=== PATIENT | female | born 1975 | race Caucasian/White ===

== ENCOUNTER 2025-02-03 20:46 | Emergency (ER) | payer SELFPAY ==
[~2025-02-03] VITALS: Ht 170.2 cm; Wt 52.0 kg
[2025-02-03 20:50] VITALS: O2SAT 100
[2025-02-03] MEDS: LORAZEPAM 2MG/ML UD SYRINGE IM NR (21:17)
[2025-02-03] MEDS: DIPHENHYDRAMINE 50MG/ML VIAL IM ONE (21:17)
[2025-02-03] MEDS: HALOPERIDOL LACTATE 5MG/ML VIAL IM ONE (21:17)
[2025-02-03] MEDS: SODIUM CHLORIDE 0.9% 1,000 ML IV ONE ×2 (22:39)
[2025-02-03 22:56] LABS: BASOPHILS % 0.5 % (0.0-2.0); EOSINOPHILS % 0.2 % (0.0-5.0); HEMATOCRIT. 36.0 % (36.0-48.0); HEMOGLOBIN. 11.5 g/dL (12.0-16.0); LYMPHOCYTES % 9.6 % (20.0-50.0); MEAN PLATELET VOLUME 8.0 fl (7.4-10.4); MONOCYTES % 6.9 % (2.0-8.0); NEUTROPHILS % 82.8 % (40.0-76.0); PLATELET 298 x1000/uL (130-400); RED BLOOD CELL COUNT 4.50 mill/uL (4.2-5.4); RED CELL DISTRIBUTION WIDTH 15.3 % (11.6-14.6)
[2025-02-03 23:05] LABS: HCG SCREEN NEGATIVE
[2025-02-03 23:09] LABS: CREATININE 0.7 mg/dL (0.6-1.0); ETHANOL BLOOD < 10 mg/dL (<10); UREA NITROGEN BLOOD 18 mg/dL (9-23)
[2025-02-03 23:10] LABS: PROTEIN TOTAL 6.9 g/dL (6.0-8.3)
[2025-02-03 23:11] LABS: ASPARTATE AMINOTRANSFERASE 55 IU/L (<34); BILIRUBIN DIRECT 0.2 mg/dL (<=3.0); BILIRUBIN TOTAL 0.6 mg/dL (0.1-1.0)
[2025-02-04] MEDS: POTASSIUM CHLORIDE 20MEQ TABLET SR PO ONE (00:29)
[2025-02-04] MEDS: OLANZAPINE 10 MG/VIAL IM NR (03:10)
[2025-02-04 04:42] LABS: *AMPHETAMINES SCREEN URINE NEGATIVE (NEGATIVE)
[2025-02-04 04:43] LABS: *BARBITURATES SCREEN URINE NEGATIVE (NEGATIVE); *BENZODIAZEPINES SCREEN URINE NEGATIVE (NEGATIVE); *COCAINE SCREEN URINE NEGATIVE (NEGATIVE); CANNABINOID URINE SCREEN NEGATIVE (NEGATIVE); ECSTASY MDMA SCREEN URINE NEGATIVE (NEGATIVE); METHADONE URINE SCREEN NEGATIVE (NEGATIVE); OPIATES URINE SCREEN NEGATIVE (NEGATIVE); PHENCYCLIDINE URINE SCREEN NEGATIVE (NEGATIVE)
[2025-02-04] MEDS: HALOPERIDOL LACTATE 5MG/ML VIAL IM ONE (04:44)
[2025-02-04] MEDS: DIPHENHYDRAMINE 50MG/ML VIAL IM ONE (04:44)
[2025-02-04] MEDS: LORAZEPAM 2MG/ML UD SYRINGE IM NR (04:44)
[2025-02-04 20:33] VITALS: BP 99/60; PULSE 75; RESP 20; TEMP 36.9; O2SAT 99
== END 2025-02-04 20:39 ==
LOC: ER 20:46
DX: F29 Unspecified psychosis not due to a substance or known physiological condition (principal); E87.6 Hypokalemia; Z79.899 Other long term (current) drug therapy
CPT/HCPCS: 80076; 80048; 80307; 80329; 80320; 84703; 85025; 36415; 96360; 96372 ×2; 99285; 87426; 80305; J1200 ×2; J1630 ×2; J2060 ×2; J7030; J3490; Z7610; G0480